=== PATIENT | female | born 1990 | race Caucasian/White ===

== ENCOUNTER 2017-09-30 23:06 | Emergency (ER) | payer SELFPAY ==
[~2017-09-30] VITALS: Ht 170.2 cm; Wt 68.0 kg
[2017-09-30 23:15] VITALS: BP 118/78
== END 2017-10-01 02:36 | disposition left against medical advice (07) ==
LOC: EDBD 23:06 → EDUNIT# 23:06 → ER 23:16
DX: R51 Headache (principal); Z53.21 Procedure and treatment not carried out due to patient leaving prior to being seen by health care provider